=== PATIENT | female | born 1990 | race Caucasian/White ===

== ENCOUNTER → 2018-09-04 | Outpatient (CLI) | payer BC ==
--- NOTE | 2018-09-04 10:55 | REP ---
Chest x-ray: Two views. History: Abnormal lung sounds. No comparison study. Findings: There is an infiltrate consistent with pneumonia in the left upper lobe possibly lingular segment. The right lung is clear. Pleural angles are sharp. Heart size is normal. No bony abnormality is seen. Impression: Left upper lobe pneumonia. Electronically Signed by Garry Goodman MD 09/04/2018 10:46 A
== END ==
LOC: M LRY 10:04
PROVIDERS: ATTEND Nurse Practitioner Family
DX: J18.9 Pneumonia, unspecified organism (principal)